=== PATIENT | female | born 1960 | race Caucasian/White ===

== ENCOUNTER 2016-04-14 06:50 | Emergency (ER) ==
--- NOTE | 2016-04-14 07:14 | EKG Report ---
Test Performed on : 04/14/2016 07:07:00 AM Test Reason : CHEST PAIN Blood Pressure : / mmHG Vent. Rate : 079 BPM Atrial Rate : 079 BPM P-R Int : 182 ms QRS Dur : 154 ms QT Int : 444 ms P-R-T Axes : 045 -41 123 degrees QTc Int : 509 ms Normal sinus rhythm. Left axis deviation Left ventricular hypertrophy with QRS widening and repolarization abnormality Lateral infarct , age undetermined Inferior infarct , age undetermined Abnormal ECG No previous ECGs available Unconfirmed Result
[2016-04-14 07:24] LABS: MANUAL DIFF NEEDED? NO
[2016-04-14 07:26] LABS: BASO% 0.5 % (0.0-0.8); EOS# 0.22 X1000 (0.0-0.7); EOS% 2.3 % (0.0-10.0); HEMATOCRIT 41.3 % (37.0-47.0); HEMOGLOBIN 13.7 g/dL (12.0-16.0); IMM GRAN# 0.06 X1000 (0.0-0.04); IMM GRAN% 0.6 % (0.0-0.5); LYMPH% 24.6 % (20.5-51.1); MCH 29.3 PG (27-31); MCHC 33.2 g/dL (33-37); MCV 88.4 FL (81-99); MONO# 0.71 X1000 (0.11-0.59); MONO% 7.3 % (1.7-9.3); MPV 9.9 FL (7.4-10.4); NEUT% 64.7 % (42.2-75.2); PLT 348 X1000 (130-400); RBC 4.67 XMIL (4.2-5.4)
--- NOTE | 2016-04-14 07:40 | Diag Imaging Result Document ---
PROCEDURE NAME: CHEST-2 VIEWS - 04/14/2016 FRONTAL AND LATERAL CHEST, TWO VIEWS: FINDINGS: The lungs are well expanded. The heart is not enlarged. The vessels are not distended. No pneumonia. No pleural effusions. IMPRESSION: No acute abnormality.
[2016-04-14 07:42] LABS: AGAP 13; ALBUMIN 4.1 g/dL (3.5-5.0); ALKALINE PHOSPHATASE 69 U/L (32-104); BUN 11 mg/dL (8-22); CALCIUM 9.5 mg/dL (8.8-10.2); CHLORIDE 102 mmol/L (98-107); CK PROFILE 146 U/L (24-173); COSMO 281; GOT 23 U/L (10-30); GPT 14 U/L (10-36); MAGNESIUM 1.9 mg/dL (1.5-2.7); POTASSIUM 3.9 mmol/L (3.5-5.1); SODIUM 139 mmol/L (136-145); TCO2 24 mmol/L (25-35); TOTAL PROTEIN 7.3 g/dL (6.3-8.3)
[2016-04-14 07:50] LABS: INR 0.95 (0.86-1.15)
--- NOTE | 2016-04-14 08:22 | EKG Report ---
Test Performed on : 04/14/2016 08:11:33 AM Test Reason : repeat Blood Pressure : / mmHG Vent. Rate : 070 BPM Atrial Rate : 070 BPM P-R Int : 156 ms QRS Dur : 154 ms QT Int : 472 ms P-R-T Axes : 014 -40 116 degrees QTc Int : 509 ms Normal sinus rhythm. Left axis deviation Nonspecific intraventricular block Lateral infarct (cited on or before 14-APR-2016) Inferior infarct (cited on or before 14-APR-2016) Abnormal ECG When compared with ECG of 14-APR-2016 08:10, (Unconfirmed) Serial changes of Lateral infarct present Unconfirmed Result
--- NOTE | 2016-04-14 08:27 | PROVIDER DOCUMENTATION ---
HPI-Respiratory General - General Chief Complaint: Shortness of Breath Stated Complaint: SOB/PALPITATIONS/NAUSEA Time Seen by Provider: 04/14/16 07:54 Source: patient, family Allergies/Adverse Reactions: Patient Allergies Allergy/AdvReac Type Severity Reaction Status Date / Time No Known Allergies Allergy Verified 10/25/12 13:14 Home Medications: Home Medication List Medication Instructions Recorded Confirmed Last Taken Type Hydrochlorothiazide 12.5 mg PO DAILY 10/25/12 10/25/12 10/24/12 06:30 History Ibuprofen 600 mg PO 4XDAY PRN PRN #60 tablet 10/25/12 Unknown Rx Levothyroxine [Synthroid] 50 microgm PO DAILY 10/25/12 10/25/12 10/24/12 06:30 History Metformin [Glucophage] 500 mg PO BID CC 10/25/12 10/25/12 10/24/12 06:30 History Duloxetine [Cymbalta] 1 dose PO DAILY 04/14/16 04/14/16 03/23/16 History Estradiol [Estrace] 2 mg PO 04/14/16 Unknown History Gemfibrozil 1 dose PO DAILY 04/14/16 04/14/16 Unknown History Metoprolol Tartrate 1 dose PO DAILY 04/14/16 04/14/16 Unknown History - History of Present Illness-Resp Nature of Presenting Problem: 55 y/o WF with a PMHx of hypothyroidism, DM, anxiety and HLd that presents to the ED with a 5 hour h/o SOB. Pt states that she woke up with drapping of the hand and noted the SOB. States lying down aggravates the SOB. No alleviating factors. Reports some dizziness and palpations in the recent past, but none associated with this episode. States that she recently stopped her cymbalta and cholesterol medication. Pt denies any chest or abdominal pain. No other issues. Quality of Pain: reports: none Severity in ED: reports: mild Onset/Duration: reports: 4-6 hours ago Timing: reports: gone now Context: reports: out of meds Exposure: reports: unknown cause Cough Quality/Degree: reports: no cough Episode Frequency: occasional episodes Current Respiratory Medication Therapy: Initiated none Modifying Factors: improves with: lying down Associated Symptoms: reports: dizziness Review of Systems - Adult - REVIEW OF SYSTEMS - ADULT Constitutional: reports: no symptoms reported Eyes: reports: no symptoms reported Ears, Nose, Mouth & Throat: reports: no symptoms reported Cardiovascular: reports: no symptoms reported, palpitations. denies: chest pain Respiratory: reports: dyspnea on exertion, shortness of breath. denies: cough Gastrointestinal: reports: no symptoms reported Genitourinary: reports: no symptoms reported Musculoskeletal: reports: no symptoms reported Integumentary: reports: no symptoms reported Neurological: reports: no symptoms reported Psychiatric: reports: no symptoms reported Endocrine: reports: no symptoms reported Hematologic/Lymphatic: reports: no symptoms reported Allergic/Immunologic: reports: no symptoms reported Past History - Adult - PAST MEDICAL HISTORY-ADULT Review of Records: reports: Old Records Reviewed, Nursing Assessment Review, Medications Reviewed - IMMUNIZATION STATUS Childhood Immunizations: See Nurse Assessment Flu Vaccine: See Nurse Assessment - SOCIAL HISTORY Smoking: denies Substance Use: none/never Alcohol Use Frequency: never Living Situation: family Physical Exam-General - CONSTITUTIONAL General Appearance: appears well, alert, no apparent distress. negative: lethargic, slow to respond - EYES Eyes: PERRL/EOMI, pink conjunctivae - HEAD, EARS, NOSE, MOUTH & THROAT HENMT: normocephalic/atraumatic, moist mucous membranes, normal ENT inspection. negative: pharyngeal erythema, tonsillar exudate - NECK Neck: non-tender, full range of motion, supple. negative: C-spine tenderness - RESPIRATORY Respiratory: chest non-tender, lungs clear, normal breath sounds. negative: crackles, rales, rhonchi, stridor, wheezing - CARDIOVASCULAR Cardiovascular: normal peripheral pulses, regular rate, rhythm, no murmur - CHEST (BREASTS) Chest/Breast: no tenderness - GASTROINTESTINAL (ABDOMEN) Abdominal Exam: normal bowel sounds, non tender, soft, distended. negative: guarding, rigid, rebound, tenderness - GENITOURINARY Female Genitalia/Pelvic Exam: deferred Rectal Exam: deferred - LYMPHATIC Lymphatic: no adenopathy - MUSCULOSKELETAL Back Exam: normal inspection, no CVA tenderness. negative: muscle spasm, swelling Extremity: normal range of motion - SKIN Integumentary: normal color, normal turgor, warm/dry. negative: rash - NEUROLOGIC Neurologic: grossly normal, no motor/sensory deficits. negative: facial droop, focal weakness, motor weakness - PSYCHIATRIC Psych/Mental Status: normal mood/affect, normal thought content, normal thought process, oriented x 3, paranoid Progress - PLAN OF CARE/RESULTS Progress/Plan/Lab Results: Laboratory Tests 04/14/16 04/14/16 04/14/16 07:20 07:20 07:20 WBC RBC Hgb Hct MCV MCH MCHC RDW Std Deviation Plt Count MPV Immature Gran % (Auto) Neut % (Auto) Lymph % (Auto) Petroleum % (Auto) Eos % (Auto) Baso % (Auto) Immature Gran # (Auto) Neut # (Auto) Lymph # (Auto) Petroleum # (Auto) Eos # (Auto) Baso # (Auto) PT INR APTT (Factor Assay) D-Dimer Sodium 139 Potassium 3.9 Chloride 102 Carbon Dioxide 24 L Anion Gap 13 BUN 11 Creatinine 0.6 Estimated GFR/1.73 m2 > 60 BUN/Creatinine Ratio 18 Glucose 166 H Calculated Osmolality 281 Calcium 9.5 Magnesium 1.9 Total Bilirubin 0.20 AST 23 ALT 14 Alkaline Phosphatase 69 Creatine Kinase 146 Troponin T < 0.010 Amy-X-Eopidfenlca Pept 87 Total Protein 7.3 Albumin 4.1 Globulin 3.0 Albumin/Globulin Ratio 1.0 04/14/16 04/14/16 04/14/16 07:20 07:20 07:20 WBC 9.74 RBC 4.67 Hgb 13.7 Hct 41.3 MCV 88.4 MCH 29.3 MCHC 33.2 RDW Std Deviation 13.2 Plt Count 348 MPV 9.9 Immature Gran % (Auto) 0.6 H Neut % (Auto) 64.7 Lymph % (Auto) 24.6 Petroleum % (Auto) 7.3 Eos % (Auto) 2.3 Baso % (Auto) 0.5 Immature Gran # (Auto) 0.06 H Neut # (Auto) 6.30 Lymph # (Auto) 2.40 Petroleum # (Auto) 0.71 H Eos # (Auto) 0.22 Baso # (Auto) 0.05 PT 13.0 INR 0.95 APTT (Factor Assay) 27.0 D-Dimer 0.25 Sodium Potassium Chloride Carbon Dioxide Anion Gap BUN Creatinine Estimated GFR/1.73 m2 BUN/Creatinine Ratio Glucose Calculated Osmolality Calcium Magnesium Total Bilirubin AST ALT Alkaline Phosphatase Creatine Kinase Troponin T Lco-H-Ukoeqakgrjl Pept Total Protein Albumin Globulin Albumin/Globulin Ratio Orders Category Date Time Status Cardiac Monitoring DIRECTED Care 04/14/16 07:03 Active Oxygen Therapy- ED Nursing DIRECTED Care 04/14/16 07:03 Active Saline Loc NOW Care 04/14/16 07:03 Active CHEST-2 VIEWS [RAD] Stat Exams 04/14/16 07:03 Completed CBC WITH ELECTRONIC DIFF [HEME] Stat Lab 04/14/16 07:20 Completed CK PROFILE [SP CHEM] Stat Lab 04/14/16 07:20 Completed COMPREHENSIVE METABOLIC PANEL [CHEM] Stat Lab 04/14/16 07:[address] D-D[address] [COAG] Stat Lab 04/14/16 07:20 Completed MAGNESIUM [CHEM] Stat Lab 04/14/16 07:20 Completed PRO B-NATRIURETIC PEPTIDE Stat Lab 04/14/16 07:[address] Com[address]IME WITH INR PL [COAG] Stat Lab 04/14/16 07:[address] [COAG] Stat Lab 04/14/16 07:20 Completed TROPONIN T Stat Lab 04/14/16 07:20 Completed EKG [EKG] Stat Ther 04/14/16 07:03 Draft EKG [EKG] Stat Ther 04/14/16 08:07 Draft Vital Signs - 24 hr 04/14/16 06:56 Temperature 98.5 F Pulse Rate 84 Respiratory 20 Rate Blood Pressure 191/70 O2 Sat by Pulse 99 Oximetry - EKG 1 Time of EKG reading by physician:: 07:07 EKG Read and Signed by:: Gwen Amador Jr EKG Interpretation (*Must complete 3 of following elements*): Abnormal Rate: 79 Rhythm: sinus [place]: left QRS: LVH [place] Interval: prolonged ST Wave: normal Comments: repolarization abnormality 2 Time of EKG reading by physician:: 08:11 EKG Read and Signed by:: Gwen Amador Jr EKG Interpretation (*Must complete 3 of following elements*): Abnormal Rate: 70 Rhythm: sinus [place]: left QRS: LVH [place] Interval: prolonged ST Wave: normal Prior EKG Comparison: unchanged from prior - XRAY 1 XRAY Study: Chest Impression: Normal XRAY Interpretation: no acute abnormality Departure - Departure Time of Disposition Order: 08:50 DIAGNOSIS: Obstructive sleep apnea Disposition: HOME 01 Certified Medical Emergency: Emergent Condition: Good Additional Instructions: Pt to follow up with PCP in 5-7 days ED Follow Up Instructions: You have been treated by a care provider in the Emergency Department. These instructions are being provided to you so you can have an understanding of how to care for yourself upon discharge. Upon discharge from the Emergency Department, you are responsible for making arrangements for follow-up care by a physician of your choice. Take all prescribed medications as directed. Return to the Emergency Department immediately for any new or worsening symptoms. You may call the Physician Referral phone number at [phone] to obtain a list of Physicians who are taking new patients. Referrals: Jhonatan Spence [Primary Care Provider] -
[2016-04-14 09:18] VITALS: BP 145/071
== END 2016-04-14 09:16 | disposition home or self-care (01) ==
LOC: P.ED 06:50
DX: G47.33 Obstructive sleep apnea (adult) (pediatric) (principal); R06.02 Shortness of breath; R42 Dizziness and giddiness; R00.2 Palpitations; R06.09 Other forms of dyspnea; R94.31 Abnormal electrocardiogram [ECG] [EKG]; Z79.899 Other long term (current) drug therapy
CPT/HCPCS: 71020; 80053; 82550; 83735; 83880; 84484; 85025; 85379; 85610; 85730; 93005; 99284